=== PATIENT | female | born 1970 | race Caucasian/White ===

== ENCOUNTER → 2017-06-26 | Outpatient (CLI) | payer BC ==
[2005-03-16 07:59] VITALS: TEMP 97.5
[~2017-06-26] MED LIST: CALCIUM 500500 M2 PO; INSULIN R (N100 U/ML IV
== END ==
LOC: MC.RAD 09:32
DX: Z12.31 Encounter for screening mammogram for malignant neoplasm of breast (principal)

== ENCOUNTER → 2018-08-03 | Outpatient (CLI) | payer BC ==
[2005-03-16 07:59] VITALS: TEMP 97.5
== END ==
LOC: MC.RAD 10:41
DX: Z12.31 Encounter for screening mammogram for malignant neoplasm of breast (principal)

== ENCOUNTER 2019-08-31 20:17 | Inpatient (IN) | payer BC ==
[~2019-08-31] VITALS: Ht 152.4 cm; Wt 65.6 kg
[2019-08-31] MEDS ORDERED: MULTI VITAMINS1 TAB PO (20:34)
[2019-08-31] MEDS ORDERED: PROAIR HFA0.09 MG/AC IH (20:37)
[2019-08-31 21:19] LABS: BASO # 0.1 (0.0-0.2); BASO % 0.8 % (0.0-2.0); EOS # 0.7 (0.0-0.7); EOS % 5.3 % (0-4.0); GRAN # 9.4 (1.4-6.5); GRAN % 72.4 % (42.2-75.2); HEMATOCRIT 40.5 % (37.0-47.0); HEMOGLOBIN 13.4 g/dl (12.5-16.0); LYMPH # 1.2 (1.2-3.4); LYMPH % 9.5 % (20.0-51.0); MEAN CELL VOLUME 95 fl (80.0-100.0); MEAN CORPUSCULAR HEMOGLOBIN 32 pg (27.0-31.0); MEAN CORPUSCULAR HGB CONC 33 g/dl (33.0-37.0); MEAN PLATELET VOLUME 11.5 fl (7.4-10.4); MONO # 1.5 (0.1-0.6); MONO % 11.5 % (1.7-9.3); PLATELET COUNT 303 K/mm3 (130-400); RED BLOOD COUNT 4.25 M/mm3 (4.10-5.30); REDCELL DISTRIBUTION WIDTH-CV 11.1 % (11.5-14.5)
[2019-08-31 21:27] LABS: ALANINE AMINOTRANSFERASE 11 U/L (4-34); ALBUMIN 3.4 gm/dL (3.5-5.0); ALKALINE PHOSPHATASE 76 U/L (50-136); ANION GAP 8 mmol/L (7-16); AST,SGOT 21 U/L (15-37); BILIRUBIN,TOTAL 0.5 mg/dL (0.0-1.0); BLOOD UREA NITROGEN 8 mg/dL (7-17); CALCIUM 8.5 mg/dL (8.4-10.2); CARBON DIOXIDE 26 mmol/L (22-30); CHLORIDE 101 mmol/L (98-107); GLUCOSE 166 mg/dL (74-106); POTASSIUM 3.4 mmol/L (3.4-5.0); SODIUM 135 mmol/L (137-145); TOTAL PROTEIN 6.5 gm/dL (6.4-8.2)
[2019-08-31 21:38] LABS: TROPONIN-I < 0.012 ng/mL (0.000-0.035)
--- NOTE | 2019-09-01 02:00 | NUR ---
Arrived to medical floor via wheelchair at this time. Assessment complete. Lungs dimished in right lung zaragoza and left lower with crackles. Heart sounds normal. Bowels active x4. INT left forearm. Orientated to medical floor. Med rec complete. All questions answered. patient has insulin pump in place. Per Nat WEAVER patient can sign waiver to use home insulin pump for dosing. Waiver signed and witnessed. Denies other needs at this time. Call light in reach.
[2019-09-01] MEDS ORDERED: NOVOLOG 100U100 U/M1 SQ (02:11)
[2019-09-01 02:30] VITALS: BP 124/71; PULSE 101; TEMP 99.3
--- NOTE | 2019-09-01 04:36 | NUR ---
Placed on telemetry at this time.
--- NOTE | 2019-09-01 06:10 | NUR ---
Patient had uneventful night. Resting in bed this Am. Call light in reach.
[2019-09-01 06:53] LABS: INR 1.3 (0.8-3.0); PROTHROMBIN TIME 14.7 SECONDS (9.7-12.8)
--- NOTE | 2019-09-01 07:28 | NUR ---
Report given to KILEY Burkett
[2019-09-01 08:11] VITALS: BP 112/58; PULSE 104; TEMP 98.2
--- NOTE | 2019-09-01 10:26 | NUR ---
Assessment completed, alert/oriented, vital signs stable, slightly tachycardic but Sinus ryhtm on tele, lungs CTA/ diminished right side lungs sounds, scheduled for right sided thoracentesis today with IR/ consent signed, patient has been NPO, denies needs at this time
--- NOTE | 2019-09-01 10:34 | NUR ---
Foot Gatherer attended clinical rounds with the team then met with patient to discuss discharge planning. Patient lives in [place] with her , Manoj (ph#[phone]) and sees Dr. Reese for primary care. Patient obtains medications from [facility] with no difficulties. Patient uses an insulin pump and no other DME. Patient reports independence with ADLS and plans to return home upon discharge. Patient does not have Advance Directives but was interested in obtaining the forms. SW provided. Patient advised she has transportation arrangements to get home upon discharge. No additional needs at this time.
--- NOTE | 2019-09-01 11:12 | NUR ---
Patient is off the floor for thoracentesis
--- NOTE | 2019-09-01 11:37 | NUR ---
First visit from the yoker machine operator. prayed with patient. No other needs right now.
[2019-09-01 12:19] LABS: GLUCOSE,PLEURAL FLUID 187 mg/dL; TOTAL PROTEIN,PLEURAL FLUID 4.2 gm/dL
[2019-09-01 12:28] LABS: PLEURAL FLUID RBC 9000 /mm3 (0-0); PLEURAL FLUID WBC 1616 /mm3
[2019-09-01 12:38] LABS: PLEURAL FLUID COLOR YELLOW
[2019-09-01 12:46] LABS: PLEURAL FLUID APPEARANCE HAZY
[2019-09-01 13:34] VITALS: BP 120/62; PULSE 110; TEMP 98
[2019-09-01 16:05] VITALS: BP 114/61; PULSE 102; TEMP 98.4
[2019-09-01 16:21] LABS: COLLECTION METHOD CLEAN CATCH
[2019-09-01 16:28] LABS: MUCOUS Present /lpf; PH 6 (5-8); SQUAMOUS EPITHELIAL 0-2 /hpf; URINE APPEARANCE Hazy; URINE BACTERIA None Seen /hpf; URINE BILIRUBIN Negative (NEGATIVE); URINE BLOOD Negative (NEGATIVE); URINE COLOR Yellow; URINE GLUCOSE 3+ (NEGATIVE); URINE KETONE 1+ (NEGATIVE); URINE LEUKOCYTE ESTERASE Negative (NEGATIVE); URINE NITRATE Negative (NEGATIVE); URINE PROTEIN(semi-quant) Negative (NEGATIVE); URINE RBC 0-2 /hpf
--- NOTE | 2019-09-01 19:35 | NUR ---
Sitting in recliner. Assessment complete. Right lung zaragoza dimished, left lung zaragoza clear. Heart sounds normal. Bowels active x4. Pulses strong throughotu. No edema noted. INT left AC without complications. Reports 3/10 right trunk pain. Provided with PRN tylenol. Denies other needs at this time. Call light in reach.
[2019-09-01 20:22] VITALS: BP 120/66; PULSE 87; TEMP 98.6
--- NOTE | 2019-09-01 23:57 | NUR ---
Patient resting in bed. Denies pain. Denies needs. Call light in reach.
[2019-09-02] VITALS (7 sets, daily range): BP systolic 106–141; BP diastolic 65–76; PULSE 84–117; TEMP 98.1–98.7
--- NOTE | 2019-09-02 04:30 | NUR ---
Resting in bed. Denies needs. Call light in reach.
--- NOTE | 2019-09-02 06:36 | NUR ---
Patient had uneventful night. Resting in bed this AM. Call light in reach.
[2019-09-02 07:19] LABS: CALCIUM 8.6 mg/dL (8.4-10.2); CREATININE, serum 0.57 (0.52-1.25); POTASSIUM 3.9 mmol/L (3.4-5.0)
[2019-09-02 07:39] LABS: BASO # 0.1 (0.0-0.2); BASO % 0.9 % (0.0-2.0); EOS # 1.2 (0.0-0.7); EOS % 8.9 % (0-4.0); GRAN # 9.2 (1.4-6.5); GRAN % 70.6 % (42.2-75.2); HEMATOCRIT 40.3 % (37.0-47.0); LYMPH # 1.2 (1.2-3.4); LYMPH % 9.3 % (20.0-51.0); MEAN CELL VOLUME 96 fl (80.0-100.0); MEAN CORPUSCULAR HEMOGLOBIN 31 pg (27.0-31.0); MEAN CORPUSCULAR HGB CONC 32 g/dl (33.0-37.0); MEAN PLATELET VOLUME 11.8 fl (7.4-10.4); MONO # 1.3 (0.1-0.6); MONO % 9.8 % (1.7-9.3); PLATELET COUNT 293 K/mm3 (130-400); RED BLOOD COUNT 4.19 M/mm3 (4.10-5.30); REDCELL DISTRIBUTION WIDTH-CV 11.2 % (11.5-14.5)
--- NOTE | 2019-09-02 07:45 | NUR ---
Report given to KILEY Bermudez
--- NOTE | 2019-09-02 10:36 | NUR ---
Patient is awake and alert in room. Independent with cares. States she occasionally feels short of breath if she is up for a period of time and will temporarily wear oxygen after activity. She is unsure if she really needs the oxygen or if it is anxiety related. She has been up to the shower, linens changed. Denies pain. Has been NPO for procedure later today.
--- NOTE | 2019-09-02 11:15 | NUR ---
PT GIVEN 0.5 MG VERSED AND 25 MCG FENTANYL FOR ANXIETY
--- NOTE | 2019-09-02 11:56 | NUR ---
PT WAS TAKEN IN WHEELCHAIR TO CT. PLACED INTO POSITION AND MONITORING EQUIPMENT PLACED.IMAGES TAKEN AND SENT
--- NOTE | 2019-09-02 12:15 | NUR ---
1215PT TAKEN UPSTAIRS TO ROOM 318 IN WHEELCHAIR. 1230REPORT GIVEN TO TIBURCIO CAO. PT IS SETTLED IN ROOM
--- NOTE | 2019-09-02 18:08 | NUR ---
Discharge instructions reviewed with patient. Dressed independently and personal belongings gathered. picked patient up via private vehicle.
[2019-09-08] MEDS ORDERED: LEVAQUIN 750MG750 M1 PO (10:51)
== END 2019-09-02 17:30 | disposition home or self-care (01) | DRG 187 ==
LOC: COL.ER 20:17 → MEDICAL 09-01 00:53
PROVIDERS: Nurse Practitioner; Nurse Practitioner Family; Physician Assistant; ADMIT Student in an Organized Health Care Education/Training Program
PROC: 0W993ZZ Drainage of Right Pleural Cavity, Percutaneous Approach (ICD-10-PCS; 2019-09-01)
PROC: 0BBN3ZX Excision of Right Pleura, Percutaneous Approach, Diagnostic (ICD-10-PCS; principal; 2019-09-02)
DX: J90 Pleural effusion, not elsewhere classified (principal); J98.11 Atelectasis; E10.9 Type 1 diabetes mellitus without complications; D72.829 Elevated white blood cell count, unspecified; J94.9 Pleural condition, unspecified; Z96.41 Presence of insulin pump (external) (internal)
CPT/HCPCS: 99222-AI; 99239; J0696; J7030

== ENCOUNTER 2019-09-10 07:37 | Outpatient (CLI) | payer BC ==
[~2019-09-10] VITALS: Ht 160 cm; Wt 63.7 kg
[~2019-09-10 07:37] MED LIST changes: +LEVAQUIN 750MG750 M1 PO; +MULTI VITAMINS1 TAB PO; +NOVOLOG 100U100 U/M1 SQ; +PROAIR HFA0.09 MG/AC IH
--- NOTE | 2019-09-10 08:00 | NUR ---
Finger stick blood sugar 156 via patient's personal monitor done at this time in patient room.
[2019-09-10 08:36] VITALS: BP 135/81; PULSE 118; TEMP 97.7
[2019-09-10 09:04] VITALS: BP 112/80; PULSE 130
--- NOTE | 2019-09-10 09:30 | NUR ---
Patient back into SDC room at this time. Patient resting comfortably. Will start IV and fluids per Dr Eugene's orders.
--- NOTE | 2019-09-10 09:35 | NUR ---
IV fluids started at this time. Vitals stable.
--- NOTE | 2019-09-10 09:40 | NUR ---
Dr Eugene into see patient at this time to go over options to transfer patient to for further care.
--- NOTE | 2019-09-10 09:50 | NUR ---
Dr Eugene on the phone with [facility] at this time.
--- NOTE | 2019-09-10 10:00 | NUR ---
On the phone with transfer center at this time.
--- NOTE | 2019-09-10 10:05 | NUR ---
Fax paperwork sent to transfer center at this time. Patient vitals stable.
--- NOTE | 2019-09-10 11:00 | NUR ---
Patient resting comfortably on bed, vitals stable, IV fluids infusing.
--- NOTE | 2019-09-10 12:25 | NUR ---
Dismissal/transfer instructions gone over with patient and patient's daughter. Both verbalize understanding and all questions answered.
--- NOTE | 2019-09-10 12:30 | NUR ---
Patient discharged to patient enterance to private vehicle via wheelchair. Patient's daughter is driving. Patient and family leave thanking staff for services.
--- NOTE | 2019-09-10 12:35 | NUR ---
Patient report called to KILEY Diop at [facility].
== END 2019-09-10 12:30 | disposition short-term general hospital (02) ==
LOC: SDCO 07:37
DX: R06.02 Shortness of breath (principal)
CPT/HCPCS: J7120

== ENCOUNTER → 2019-09-30 | Outpatient (CLI) | payer BC | LOC: COL.CARD 06:36 | DX: C34.31 Malignant neoplasm of lower lobe, right bronchus or lung (principal) ==

== ENCOUNTER → 2019-10-11 | Outpatient (CLI) | payer BC | LOC: COL.CARD 07:26 | DX: C34.31 Malignant neoplasm of lower lobe, right bronchus or lung (principal) ==

== ENCOUNTER → 2019-10-15 | Outpatient (CLI) | payer BC | LOC: COL.RAD 13:21 | DX: C34.91 Malignant neoplasm of unspecified part of right bronchus or lung (principal); J90 Pleural effusion, not elsewhere classified; Z97.8 Presence of other specified devices ==

== ENCOUNTER → 2019-11-17 | Outpatient (CLI) | payer BC | LOC: COL.CARD 08:26 | DX: C34.31 Malignant neoplasm of lower lobe, right bronchus or lung (principal) ==

== ENCOUNTER → 2020-09-05 | Outpatient (CLI) | payer BC | LOC: MC.RAD 08-08 16:45 | DX: Z12.31 Encounter for screening mammogram for malignant neoplasm of breast (principal) ==

== ENCOUNTER → 2020-10-12 | Outpatient (CLI) | payer BC | LOC: DIA.ED 09:13 | DX: E10.9 Type 1 diabetes mellitus without complications (principal); I10 Essential (primary) hypertension | CPT/HCPCS: G0108 ==

== ENCOUNTER → 2020-11-08 | Outpatient (CLI) | payer BC | LOC: DIA.ED 08:29 | DX: E10.65 Type 1 diabetes mellitus with hyperglycemia (principal); I10 Essential (primary) hypertension | CPT/HCPCS: G0108 ==

== ENCOUNTER → 2021-12-05 | Outpatient (CLI) | payer BC | LOC: COL.RAD 07:57 | DX: R13.14 Dysphagia, pharyngoesophageal phase (principal) | CPT/HCPCS: A9541 ==